=== PATIENT | male | born 1960 | race Caucasian/White ===

== ENCOUNTER 2019-10-27 10:08 | Emergency (ER) | payer MEDICAID ==
[~2019-10-27] VITALS: Ht 182.9 cm; Wt 99.9 kg
[2019-10-27 10:12] VITALS: BP 165/95
[2019-10-27] MEDS ORDERED: HYDROcodone/APAP 5/325 TABLET PO ONE (10:30)
[2019-10-27] MEDS ORDERED: HYDROcodone/APAP 5/325 TABLET ONE (10:37)
--- NOTE | 2019-10-27 10:41 | NUR ---
PT STATES THAT HE CHIPPED HIS TOOTH TODAY AFTER BITING INTO AN APPLE. GAVE PT PAIN MEDICINE PER [facility] AND BONE WAX TO COVER TOOTH.
== END 2019-10-27 10:56 | disposition home or self-care (01) ==
LOC: ED 10:55
DX: K08.89 Other specified disorders of teeth and supporting structures (principal)
CPT/HCPCS: 99283

== ENCOUNTER 2021-01-16 22:34 | Emergency (ER) | payer MEDICAID ==
[~2021-01-16] VITALS: Ht 182.9 cm; Wt 105.8 kg
[2021-01-16 23:57] LABS: BASOPHILS % (AUTO) 1 % (0-1); EOSINOPHILS % (AUTO) 4 % (1-7); LYMPHOCYTES % (AUTO) 13 % (22-44); MEAN CORPUSCULAR HEMOGLOBIN 28.6 pg (27.5-34.5); MEAN CORPUSCULAR HGB CONC 33.9 g/dL (33.2-36.2); MEAN PLATELET VOLUME 8.8 fL (7.4-10.4); MONOCYTES % (AUTO) 14 % (2-9); NEUTROPHILS % (AUTO) 69 % (42-75); PLATELET COUNT 250 x10^3/uL (130-400); RED BLOOD COUNT 4.77 x10^6/uL (4.38-5.82); RED CELL DISTRIBUTION WIDTH 14.2 % (9.4-14.8)
[2021-01-17 00:08] LABS: ALBUMIN 3.3 g/dL (3.4-5.0); ANION GAP 7 mmol/L (5-15); CALCIUM 8.9 mg/dL (8.5-10.1); CHLORIDE 104 mmol/L (98-107)
[2021-01-17 00:13] LABS: ALANINE AMINOTRANSFERASE 34 U/L (12-78); ALKALINE PHOSPHATASE 88 U/L (45-117); BILIRUBIN,TOTAL 0.4 mg/dL (0.2-1.0); CREATININE 0.81 mg/dL (0.7-1.3); TOTAL PROTEIN 7.2 g/dL (6.4-8.2); TROPONIN I < 0.015 ng/mL (0.000-0.045)
--- NOTE | 2021-01-17 00:21 | NUR ---
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 TO ROOM FROM LOBBY AT THIS TIME.
[2021-01-17] MEDS ORDERED: METHOCARBAMOL 750 MG TABLET ONE (00:57)
[2021-01-17] MEDS ORDERED: IBUPROFEN 800 MG TABLET ONE (00:57)
[2021-01-17] MEDS ORDERED: METHOCARBAMOL 750 MG TABLET PO ONE (01:00)
[2021-01-17] MEDS ORDERED: IBUPROFEN 800 MG TABLET PO ONE (01:00)
--- NOTE | 2021-01-17 01:44 | NUR ---
Request UA from pt at this time, pt going to attempt to provide sample
[2021-01-17 01:52] VITALS: BP 140/78
[2021-01-17 03:42] LABS: MICROSCOPIC AUTO
== END 2021-01-17 04:03 | disposition home or self-care (01) ==
LOC: ED 23:59
DX: S39.012A Strain of muscle, fascia and tendon of lower back, initial encounter (principal); N30.00 Acute cystitis without hematuria; I10 Essential (primary) hypertension; F17.200 Nicotine dependence, unspecified, uncomplicated; X58.XXXA Exposure to other specified factors, initial encounter; Y93.89 Activity, other specified; Y92.89 Other specified places as the place of occurrence of the external cause; Y99.8 Other external cause status
CPT/HCPCS: 36415; 71045; 80053; 81001; 83880; 84484; 85025; 87077; 87086; 87186; 93005; 93970; 99285

== ENCOUNTER 2021-02-04 20:41 | Emergency (ER) | payer MEDICAID ==
[~2021-02-04] VITALS: Ht 182.9 cm; Wt 110.0 kg
[2021-02-04 21:12] LABS: BASOPHILS % (AUTO) 1 % (0-1); EOSINOPHILS % (AUTO) 1 % (1-7); LYMPHOCYTES % (AUTO) 18 % (22-44); MEAN CORPUSCULAR HEMOGLOBIN 28.7 pg (27.5-34.5); MEAN CORPUSCULAR HGB CONC 34.1 g/dL (33.2-36.2); MEAN PLATELET VOLUME 8.4 fL (7.4-10.4); MONOCYTES % (AUTO) 11 % (2-9); NEUTROPHILS % (AUTO) 70 % (42-75); PLATELET COUNT 441 x10^3/uL (130-400); RED BLOOD COUNT 5.09 x10^6/uL (4.38-5.82); RED CELL DISTRIBUTION WIDTH 13.7 % (9.4-14.8)
[2021-02-04 21:22] LABS: ALANINE AMINOTRANSFERASE 28 U/L (12-78); ALBUMIN 3.4 g/dL (3.4-5.0); ANION GAP 9 mmol/L (5-15); CALCIUM 9.2 mg/dL (8.5-10.1); CHLORIDE 103 mmol/L (98-107); CREATININE 0.98 mg/dL (0.7-1.3)
[2021-02-04 21:24] LABS: ALKALINE PHOSPHATASE 108 U/L (45-117); BILIRUBIN,TOTAL 0.9 mg/dL (0.2-1.0); TOTAL PROTEIN 8.2 g/dL (6.4-8.2)
--- NOTE | 2021-02-04 22:33 | NUR ---
provider placed gunter
[2021-02-04] MEDS ORDERED: IBUPROFEN 600 MG TABLET PO ONE (23:00)
[2021-02-04] MEDS ORDERED: HYDROcodone/APAP 5/325 TABLET PO ONE (23:00)
[2021-02-04] MEDS ORDERED: HYDROcodone/APAP 5/325 TABLET ONE (23:04)
[2021-02-04] MEDS ORDERED: IBUPROFEN 600 MG TABLET ONE (23:04)
[2021-02-04 23:32] LABS: MICROSCOPIC AUTO
--- NOTE | 2021-02-04 23:37 | NUR ---
PATIENT PROVIDED BLANKET.
--- NOTE | 2021-02-04 23:47 | NUR ---
ERP AT BEDSIDE UPDATING PLAN OF D/C
[2021-02-05 00:31] VITALS: BP 142/92
--- NOTE | 2021-02-05 00:31 | NUR ---
PATIENT PROVIDED LEG BAG WITH EDUCATION. FAMILY AT BEDSIDE AND LEARNED OUT TO APPLY LEG BAG WELL.
== END 2021-02-05 00:33 | disposition home or self-care (01) ==
LOC: ED 22:55
DX: N40.1 Benign prostatic hyperplasia with lower urinary tract symptoms (principal); R33.8 Other retention of urine; R10.30 Lower abdominal pain, unspecified; I10 Essential (primary) hypertension; F17.210 Nicotine dependence, cigarettes, uncomplicated
CPT/HCPCS: 36415; 51702; 80053; 81001; 85025; 99284; 99406

== ENCOUNTER 2021-02-10 08:33 | Emergency (ER) | payer MEDICAID ==
[~2021-02-10] VITALS: Ht 182.9 cm; Wt 100.0 kg
--- NOTE | 2021-02-10 09:14 | NUR ---
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
[2021-02-10] MEDS ORDERED: HYDROmorphone 2 MG/ML, 1ML ONE ×3 (09:43→12:03)
[2021-02-10] MEDS ORDERED: ONDANSETRON 2MG/ML, 2ML ONE (09:43)
[2021-02-10] MEDS: HYDROmorphone 1 MG/ML, 1ML INJ IVPush PRN ×4 (09:45→12:23)
--- NOTE | 2021-02-10 09:47 | NUR ---
DR DAI AT BEDSIDE. PT ASSESSMENT, POC DISCUSSED AND QUESTIONS ANSWERED. PT MED NOTED FOR PAIN
[2021-02-10 09:50] LABS: BASOPHILS % (AUTO) 1 % (0-1); EOSINOPHILS % (AUTO) 2 % (1-7); LYMPHOCYTES % (AUTO) 24 % (22-44); MEAN CORPUSCULAR HEMOGLOBIN 28.9 pg (27.5-34.5); MEAN CORPUSCULAR HGB CONC 34.2 g/dL (33.2-36.2); MEAN PLATELET VOLUME 8.3 fL (7.4-10.4); MONOCYTES % (AUTO) 9 % (2-9); NEUTROPHILS % (AUTO) 64 % (42-75); PLATELET COUNT 411 x10^3/uL (130-400); RED BLOOD COUNT 4.89 x10^6/uL (4.38-5.82); RED CELL DISTRIBUTION WIDTH 13.4 % (9.4-14.8)
[2021-02-10] MEDS ORDERED: KETAMINE 10 MG/ML, 20ML ONE (09:54)
[2021-02-10] MEDS ORDERED: KETAMINE 10 MG/ML, 20ML IV STA (09:54)
[2021-02-10] MEDS ORDERED: ONDANSETRON 2MG/ML, 2ML IVPush ONE (10:00)
[2021-02-10 10:03] LABS: ALBUMIN 3.4 g/dL (3.4-5.0); ANION GAP 7 mmol/L (5-15); CALCIUM 9.9 mg/dL (8.5-10.1); CHLORIDE 106 mmol/L (98-107)
[2021-02-10 10:28] LABS: HCT (SEDRATE) 41.4 % (39.2-51.8)
[2021-02-10] MEDS ORDERED: PROPOFOL 10 MG/ML, 20ML IVPush ONE (10:30)
[2021-02-10] MEDS ORDERED: PROPOFOL 10 MG/ML, 20ML ONE (10:31)
[2021-02-10 10:32] LABS: C-REACTIVE PROTEIN, QUANT 5.9 mg/dL (0.02-0.49)
--- NOTE | 2021-02-10 10:50 | NUR ---
LATE ENTRY, DR DAI AT BEDSIDE, CONSENT FOR RIGHT KNEE ARTHROCENTESIS OBTAINED. PT MED NOTED, AND PROCEDURE COMPLETED W/O DIFFICULTY BY DR DAI. PT TOLLERATED WELL. WHILE PT WAS STILL SEDATED, EXISTING SERRANO CATH WAS D/C TIP INTACT AND NEW 18FR SERRANO CATH WAS PLACED W/O DIFFICULTY, CLEAR URINE OUTPUT NOTED, BALLOON INFLATED WITH 10ML STERIL H20 AND SERRANO SECUREMENT DEVICE PLACED. SERRANO TO DOWN DRAIN. PT NO ATED WELL. PROCEDURE COMPLETED BY [id number].
[2021-02-10] MEDS ORDERED: LIDOCAINE-MPF 1%, 5ML ONE (10:58)
[2021-02-10] MEDS ORDERED: BUPIVACAINE 0.25% ONE (10:58)
[2021-02-10] MEDS ORDERED: COVID-19 VACC,MRNA(MODERNA)/PF 100 MCG/0.5ML IM-VACC ONE ×2 (11:00→12:30)
[2021-02-10] MEDS ORDERED: BUPIVACAINE/PF 0.5% INFIL ONE (11:00)
[2021-02-10] MEDS ORDERED: LIDOCAINE 2%, 10ML INFIL ONE (11:00)
--- NOTE | 2021-02-10 11:45 | NUR ---
PT FULLY AWAKE AND RTD TO BASELINE. VSS. CONTINUES TO C/O RIGHT KNEE PAIN. MED NOTED WITH MINIMAL RELIEF. VSS.
[2021-02-10] MEDS ORDERED: AMLO-211 PO (12:00)
[2021-02-10] MEDS ORDERED: INDOMETHACIN 50 MG CAPSULE PO ONE (12:00)
[2021-02-10 13:40] VITALS: BP 144/89
--- NOTE | 2021-02-10 13:41 | NUR ---
Patient/Caregiver given discharge instructions and they have confirmed that they understand the instructions. Patient amble to bear weight on left and transfer to wheelchair. Knee immobilizer inplace, distal cms+ . NAD, all questions answered appropriately, denies additional needs at this time. No personal belongings left in room after discharge.
== END 2021-02-10 13:42 | disposition home or self-care (01) ==
LOC: ED 09:31
DX: M17.11 Unilateral primary osteoarthritis, right knee (principal); M10.061 Idiopathic gout, right knee; N40.1 Benign prostatic hyperplasia with lower urinary tract symptoms; R33.8 Other retention of urine; I10 Essential (primary) hypertension; Z23 Encounter for immunization
CPT/HCPCS: 0011A; 20610; 36415; 51702; 73560; 80048; 82040; 82945; 83615; 84157; 84550; 84560; 85025; 85651; 85810; 86140; 87040; 87070; 87205; 89050; 89060; 91301; 96374; 96375; 99152; 99285; J1170; J2001; J2405; J2704; S0020

== ENCOUNTER 2021-02-11 09:51 | Emergency (ER) | payer MEDICAID ==
[~2021-02-11] VITALS: Ht 182.9 cm; Wt 99.9 kg
[~2021-02-11 09:51] MED LIST: AMLO-211 PO
[2021-02-11] MEDS ORDERED: KETOROLAC 30 MG/1 ML IVPush ONE (12:00)
[2021-02-11] MEDS ORDERED: SODIUM CHLORIDE FLUSH 10ML SYR IVF ONE (12:00)
[2021-02-11] MEDS ORDERED: MORPHINE SULFATE 4 MG/ML, 1ML IVPush PRN (12:00)
[2021-02-11 12:01] LABS: BASOPHILS % (AUTO) 1 % (0-1); EOSINOPHILS % (AUTO) 1 % (1-7); LYMPHOCYTES % (AUTO) 15 % (22-44); MEAN CORPUSCULAR HEMOGLOBIN 28.7 pg (27.5-34.5); MEAN CORPUSCULAR HGB CONC 33.9 g/dL (33.2-36.2); MEAN PLATELET VOLUME 8.2 fL (7.4-10.4); MONOCYTES % (AUTO) 10 % (2-9); NEUTROPHILS % (AUTO) 73 % (42-75); PLATELET COUNT 353 x10^3/uL (130-400); RED BLOOD COUNT 4.59 x10^6/uL (4.38-5.82); RED CELL DISTRIBUTION WIDTH 13.5 % (9.4-14.8)
--- NOTE | 2021-02-11 12:02 | NUR ---
PT STATES WAS SEEN IN ER YESTERDAY FOR RT KNEE SWELLING. PT STATES FLUID WAS DRAINED FROM KNEE. STATES HE WAS TOLD TO COME BACK TO ER TODAY FOR MORE "LABS." PT STATES 8/10 PAIN IN RT KNEE CURRENTLY. WILL FOLLOW ORDERS.
[2021-02-11 12:05] LABS: HCT (SEDRATE) 38.8 % (39.2-51.8)
[2021-02-11] MEDS ORDERED: MORPHINE SULFATE 4 MG/ML, 1ML ONE (12:13)
[2021-02-11] MEDS ORDERED: KETOROLAC 30 MG/1 ML ONE (12:13)
[2021-02-11 12:17] LABS: ANION GAP 8 mmol/L (5-15); CALCIUM 8.9 mg/dL (8.5-10.1); CHLORIDE 103 mmol/L (98-107); CREATININE 0.95 mg/dL (0.7-1.3)
--- NOTE | 2021-02-11 12:22 | NUR ---
PT MEDICATED FOR PAIN PER ORDERS. PT ON MONITORS, VSS. WILL REASSESS PT'S PAIN. CONT TO MONITOR.
--- NOTE | 2021-02-11 13:35 | NUR ---
PT STATS PAIN DECREASED, PAIN MEDICATIONS EFFECTIVE. PT REMAINS ON MONITORS, VSS. CONT TO MONITOR.
--- NOTE | 2021-02-11 15:10 | NUR ---
TASK RN ASSISTING PRIMARY RN DANNY. PT MEDICATED NOTED IN [facility] PER DR. GERARD. MD HAS CLEARED PT FOR DISCHARGE AND DICUSSED DISCHARGE POC WITH PT. SIGNIFICANT OTHER AT BEDSIDE. VSS. A&OX4. AWAITING DISCHARGE PAPERS FROM ERP. REPORTS PAIN TOLERABLE AT THIS TIME. HOME PAIN MGMT AND FOLLOW UP WITH ORTHO DISCUSSED WITH PT BY ERP
[2021-02-11 15:14] VITALS: BP 152/95
== END 2021-02-11 15:33 | disposition home or self-care (01) ==
LOC: ED 15:31
DX: M17.11 Unilateral primary osteoarthritis, right knee (principal); M25.461 Effusion, right knee; I10 Essential (primary) hypertension
CPT/HCPCS: 36415; 80048; 82040; 85025; 85651; 86140; 96374; 96375; 99284; J1885; J2270; J7512